=== PATIENT | female | born 1965 | race Caucasian/White ===

== ENCOUNTER 2017-01-01 10:12 | Emergency (ER) | payer OTHER ==
[2017-01-01 10:20] VITALS: BP 157/83; PULSE 77; TEMP 98; BMI 27.6
[2017-01-01] MEDS ORDERED: KETOROLAC TROMETHAMINE 60 MG/2 ML VIAL ONE (10:47)
[2017-01-01] MEDS ORDERED: KETOROLAC TROMETHAMINE 60 MG/2 ML VIAL IM ONE (10:50)
--- NOTE | 2017-01-01 10:55 | PDOC ---
History of Present Illness - General Chief Complaint: Pain Stated Complaint: HAND NUMBNESS Time Seen by Provider: 01/01/17 10:29 History Source: Patient Exam Limitations: No Limitations - History of Present Illness Initial Comments: 01/01/17 10:51 Patient is here with complaints of bilateral hand and wrist pain. 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 Has had right some radial nerve numbness for a few months and has appointment to see an orthopedist on January 10. Now states left wrist is hurting her more and more. Numbness or tingling to those fingers of left hand Occurred: reports: last week Severity: reports: mild, moderate Modifying Factors: improves with: None. worse with: cold therapy, pain medication Associated Symptoms (Fall): denies symptoms Past History - Travel Traveled outside of the country in the last 30 days: No Close contact w/someone who was outside of country & ill: No - Past Medical History Allergies/Adverse Reactions: Allergies Allergy/AdvReac Type Severity Reaction Status Date / Time No Known Allergies Allergy Verified 01/01/17 10:20 Home Medications: Ambulatory Orders No Home Medications 0 dose .ROUTE UTDICT 07/28/12 Naproxen [Naprosyn -] 500 mg PO BID #30 tablet 01/01/17 HTN: Yes - Psycho/Social/Smoking Cessation Hx Anxiety: No Suicidal Ideation: No Smoking Status: Yes Smoking History: Current every day smoker Number of Cigarettes Smoked Daily: 20 Information on smoking cessation initiated: No Hx Alcohol Use: No Review of Systems - Review of Systems Able to Perform ROS?: Yes Is the patient limited Cook Islander proficient: Yes Constitutional: Yes: See HPI. No: Symptoms Reported Musculoskeletal: Yes: Symptoms Reported, See HPI, Joint Pain, Joint Swelling Integumentary: No: Symptoms Reported Neurological: Yes: Symptoms reported, Numbness (right hand ), Paresthesia All Other Systems: Reviewed and Negative *Physical Exam - Vital Signs Last Vital Signs Temp Pulse Resp BP Pulse Ox 98 F 77 18 157/83 99 01/01/17 10:18 01/01/17 10:18 01/01/17 10:18 01/01/17 10:18 01/01/17 10:18 - Physical Exam General Appearance: Yes: Nourished, Appropriately Dressed, Apparent Distress, Mild Distress HEENT: positive: SOLIS, Normal ENT Inspection, TMs Normal, Pharynx Normal Musculoskeletal: positive: Normal Inspection. negative: Vertebral Tenderness Extremity: positive: Normal Capillary Refill. negative: Normal Range of Motion (limited range of motion secondary to tenderness with flexion and extension at wrist joint, strong grasp but this met movement reproduces tenderness through carpal tunnel and tendons of left wrist. Sensation intact to distal digits, no bone tenderness along the radius and ulna.), Swelling, Erythema Integumentary: positive: Normal Color. 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 Has appointment to see orthopedist in January for right hand issues and encouraged to discuss left wrist if continues to bother. Will use NSAIDs for pain relief and splinted. *DC/Admit/Observation/Transfer Diagnosis at time of Disposition: Strain of left wrist Qualifiers: Encounter type: initial encounter Qualified Code(s): S66.912A - Strain of unspecified muscle, fascia and tendon at wrist and hand level, left hand, initial encounter - Discharge Dispostion Disposition: HOME Condition at time of disposition: Stable Admit: No - Patient Instructions Printed Discharge Instructions: DI for Wrist Strain Additional Instructions: Rest, ice to area on and off for 15 minutes 4-6 times a day Avoid heavy lifting or exercise until pain and swelling is resolved or until further directed Keep area highly elevated to reduce swelling Use splints/Janak wrap as directed Followup with orthopedist in one to 2 days if not improving, if significantly improved may wait one week for followup with orthopedist May use ibuprofen 2-200 mg tablets every 6 hours as needed for pain - Post Discharge Activity Work/School Note: Back to Work
== END 2017-01-01 11:14 | disposition home or self-care (01) ==
LOC: JERFT 10:12
PROC: 2W3DX1Z Immobilization of Left Lower Arm using Splint (ICD-10-PCS; principal; 2017-01-01)
DX: S66.912A Strain of unspecified muscle, fascia and tendon at wrist and hand level, left hand, initial encounter (principal); X50.0XXA Overexertion from strenuous movement or load, initial encounter; X50.9XXA Other and unspecified overexertion or strenuous movements or postures, initial encounter; Y93.89 Activity, other specified; Y92.512 Supermarket, store or market as the place of occurrence of the external cause; Y99.0 Civilian activity done for income or pay
CPT/HCPCS: 99281-25

== ENCOUNTER 2017-04-07 19:12 | Emergency (ER) | payer OTHER ==
[2017-04-07 19:22] VITALS: BP 153/100; PULSE 81; TEMP 98; BMI 27.3
--- NOTE | 2017-04-07 20:14 | PDOC ---
History of Present Illness - General Chief Complaint: Sore Throat Stated Complaint: PAIN Time Seen by Provider: 04/07/17 20:10 History Source: Patient Exam Limitations: No Limitations - History of Present Illness Initial Comments: 04/07/17 20:40 Chief complaint: Itching and ear pain Patient is a 51-year-old female with a history of hypertension who was [place] got mosquito bites 2 weeks ago. She states that she thought they would go away but now she has itching all over her body. No fever. Shortness of breath and does not feel ill. Patient went to see her primary care doctor who gave her a cream she doesn't know the name but it's not helping. She states she's been taking Benadryl but it only helps a little bit. She has an appointment with a supervisor offset plate preparation on May 01. Patient is also complaining of a little bit of a sore throat and right ear pain. No difficulty eating or drinking or swallowing. GENERAL/CONSTITUTIONAL: No fever, weakness. dizziness HEAD, EYES, EARS, NOSE AND THROAT: No change in vision. +ear pain, no: discharge. +sore throat. CARDIOVASCULAR: No chest pain RESPIRATORY: No shortness of breath or cough GASTROINTESTINAL: No pain, nausea, vomiting, diarrhea or constipation GENITOURINARY: No dysuria MUSCULOSKELETAL: No neck or back pain SKIN: No rash NEUROLOGIC: No headache, vertigo, loss of consciousness, or loss of sensation. GENERAL: The patient is awake, alert, and fully oriented, in no acute distress. HEAD: Normal with no signs of trauma. EYES: Pupils equal, round and reactive to light, sclera anicteric, conjunctiva clear. ENT: pharynx: no erythema, no exudate, uvula midline. Right ear clear, left ear , canal clear, some erythema to the TM NECK: supple CHEST: clear, nontender, rr ABD: soft, nontender EXTREMITIES: Normal range of motion, no edema. NEUROLOGICAL: Normal speech, normal gait. SKIN: Warm, Dry, areas of urticaria, no signs of infection Past History - Past Medical History Allergies/Adverse Reactions: Allergies Allergy/AdvReac Type Severity Reaction Status Date / Time No Known Allergies Allergy Verified 04/07/17 19:22 Home Medications: Ambulatory Orders No Home Medications 0 dose .ROUTE UTDICT 07/28/12 Naproxen [Naprosyn -] 500 mg PO BID #30 tablet 01/01/17 Amlodipine Besylate 5 mg PO DAILY 04/07/17 Amoxicillin - [Amoxicillin 875mg Tablet -] 875 mg PO BID #20 tablet 04/07/17 Hydroxyzine HCl [Atarax -] 25 mg PO TID #21 tablet 04/07/17 Prednisone [Deltasone] 40 mg PO DAILY #10 tablet 04/07/17 HTN: Yes - Suicide/Smoking/Psychosocial Hx Smoking Status: Yes Smoking History: Current every day smoker Number of Cigarettes Smoked Daily: 20 Information on smoking cessation initiated: No Hx Alcohol Use: No *Physical Exam - Vital Signs Last Vital Signs Temp Pulse Resp BP Pulse Ox 98 F 81 18 153/100 99 04/07/17 19:18 04/07/17 19:18 04/07/17 19:18 04/07/17 19:18 04/07/17 19:18 Medical Decision Making - Medical Decision Making 04/07/17 20:42 Patient with 2 weeks of itching to the skin after traveling and having mosquito bites, has no fever, joint pain and otherwise feels well except for some ear pain which has developed in the last few days. As per report, patient gets no relief from Benadryl, saw her doctor and has an appointment with a supervisor offset plate preparation in a few weeks. We'll give her Atarax and prednisone, explained to the patient and the daughter that she needs to get further evaluation to make sure this is just a skin condition that they need to check her liver and kidneys and get a full evaluation by the supervisor offset plate preparation. Patient will also be placed on prednisone. Will prescribe amoxicillin for the ear *DC/Admit/Observation/Transfer Diagnosis at time of Disposition: Generalized pruritus - Discharge Dispostion Admit: No - Prescriptions Prescriptions: Amoxicillin - [Amoxicillin 875mg Tablet -] 875 mg PO BID #20 tablet Hydroxyzine HCl [Atarax -] 25 mg PO TID #21 tablet Prednisone [Deltasone] 40 mg PO DAILY #10 tablet - Referrals Referrals: Jordan Overton MD [Primary Care Provider] - - Patient Instructions Printed Discharge Instructions: DI for General Allergic Reactions Additional Instructions: Take the amoxicillin one tablet twice a day for 10 days for the ER For the itching you can take the Atarax 25 mg 3 times daily, this may make you sleepy. Take the prednisone 40 mg once daily for the next 5 days to see if that helps get rid of the reaction Return to the ER if shortness of breath or feeling sicker or fever Twice follow-up with supervisor offset plate preparation as instructed by your doctor
== END 2017-04-07 20:46 | disposition home or self-care (01) ==
LOC: JERFT 19:12
DX: L29.8 Other pruritus (principal)
CPT/HCPCS: 99281-25

== ENCOUNTER 2017-07-20 12:49 | Emergency (ER) | payer OTHER ==
[2017-07-20 13:00] VITALS: TEMP 98.5; BMI 27.4
--- NOTE | 2017-07-20 14:07 | PDOC ---
History of Present Illness - General Chief Complaint: Chest Pain Stated Complaint: CHEST PAIN - History of Present Illness Initial Comments: Ms Hyde is a 51yo F longtime smoker who presents with gradually progressive productive cough and chest pain. The cough preceded the chest pain, started 3 days ago, and was associated with clear/sometimes blood streaked sputum, fevers , and chills. Her daughter was recently diagnosed with bronchitis. Patient is a non-asthmatic. She denies wheezing or stridor. The chest pain started gradually along with cough. It is dull, centrally located, and pleuritic, and non- exertional. SHe denies palpitations or irregualr HR. She never had this cough and chest pain before. She has a history of HTN but is complaint with her BP meds. SH - SMoking 3 cigs/day for +30 years Past History - Past Medical History Allergies/Adverse Reactions: Allergies Allergy/AdvReac Type Severity Reaction Status Date / Time No Known Allergies Allergy Verified 07/20/17 13:01 Home Medications: Ambulatory Orders No Home Medications 0 dose .ROUTE UTDICT 07/28/12 Naproxen [Naprosyn -] 500 mg PO BID #30 tablet 01/01/17 Amlodipine Besylate 5 mg PO DAILY 04/07/17 Amoxicillin - [Amoxicillin 875mg Tablet -] 875 mg PO BID #20 tablet 04/07/17 Prednisone [Deltasone] 40 mg PO DAILY #10 tablet 04/07/17 hydrOXYzine HCL [Atarax -] 25 mg PO TID #21 tablet 04/07/17 COPD: No HTN: Yes - Suicide/Smoking/Psychosocial Hx Smoking Status: Yes Smoking History: Current every day smoker Number of Cigarettes Smoked Daily: 3 Information on smoking cessation initiated: No Hx Alcohol Use: No Drug/Substance Use Hx: No Review of Systems - Review of Systems Able to Perform ROS?: Yes Constitutional: Yes: Chills, Fever. No: Diaphoresis HEENTM: No: Eye Pain, Blurred Vision, Tearing Respiratory: Yes: Cough, Shortness of Breath. No: Orthopnea, Stridor, Wheezing Cardiac (ROS): Yes: Chest Pain. No: Edema, Irregular Heart Rate, Lightheadedness : No: Burning, Dysuria, Discharge Musculoskeletal: No: Back Pain, Gout, Joint Pain Integumentary: No: Bruising, Change in Color, Change in Hair/Nails Neurological: No: Headache, Numbness, Paresthesia Psychiatric: No: Anxiety, Depression, Frequent Crying Endocrine: No: Excessive Sweating, Flushing Hematologic/Lymphatic: No: Anemia, Blood Clots, Easy Bleeding *Physical Exam - Vital Signs Last Vital Signs Temp Pulse Resp BP Pulse Ox 98.5 F 92 H 16 152/90 98 07/20/17 12:55 07/20/17 12:55 07/20/17 12:55 07/20/17 12:55 07/20/17 12:55 - Physical Exam Comments: GEN: AAOx3, NAD but actively coughing, conversational HEENT: PERRLA, EOMi CV: S1, S2, RRR, no reproducible tenderness LUNG: CTABL ABD: Soft, NT, ND, normoactive BS MSK: No edema, no erythema NEURO: CN 2-12 intact ED Treatment Course - LABORATORY CBC & Chemistry Diagram: 07/20/17 14:10 07/20/17 14:10 - RADIOLOGY Radiology Studies Ordered: Category Date Time Status CHEST PA & LAT [RAD] Stat Radiology 07/20/17 13:59 Ordered Medical Decision Making - Medical Decision Making 51yo F with an extensive smoking history who presented with productive coughing and pleuritic chest pain along with fevers and chills. I suspect this is acute bronchitis or pneumonia. -- CBC, CMP -- UA, Urine -- CXR -- Influenza Swab 07/20/17 16:07 Flu B is positive. DC home with discharge instructions. Because symptoms started 3-4 days ago, out of Tamiflu window. CXR normal. Labs normal. *DC/Admit/Observation/Transfer Diagnosis at time of Disposition: Influenza B - Discharge Dispostion Disposition: HOME Condition at time of disposition: Good Admit: No - Referrals Referrals: Jordan Overton MD [Non Staff, Medical] - - Patient Instructions Printed Discharge Instructions: DI for Influenza -- Adult - Post Discharge Activity Forms/Work/School Notes: Back to Work
[2017-07-20 14:56] LABS: HEMOGLOBIN 12.6 GM/dL (10.7-15.3); MEAN CELL VOLUME 90.3 fl (80-96); MEAN PLT VOLUME 9.6 fl (7.5-11.1)
[2017-07-20 14:59] LABS: BASO % 0.3 % (0-2.0); EOS % 1.1 % (0-4.5); HEMATOCRIT 38.2 % (32.4-45.2); LYMPH % 27.8 % (8-40); MCH 29.8 pg (25.7-33.7); MONO % 10.3 % (3.8-10.2); NEUT % 60.5 % (42.8-82.8); PLATELET COUNT 200 K/MM3 (134-434); RBC 4.23 M/mm3 (3.60-5.2); RDW 14.8 % (11.6-15.6); WHITE BLOOD COUNT 5.5 K/mm3 (4.0-10.0)
[2017-07-20 15:31] LABS: ALBUMIN 3.6 g/dl (3.4-5.0); ANION GAP 8 (8-16); BLOOD UREA NITROGEN 11 mg/dL (7-18); CALCIUM 7.7 mg/dL (8.5-10.1); CHLORIDE 113 mmol/L (98-107); CO2 24 mmol/L (21-32); GLUCOSE,RANDOM 91 mg/dL (74-106); SODIUM 145 mmol/L (136-145)
--- NOTE | 2017-07-20 15:34 | EKG ---
Test Reason : Blood Pressure : / mmHG Vent. Rate : 086 BPM Atrial Rate : 086 BPM P-R Int : 142 ms QRS Dur : 084 ms QT Int : 384 ms P-R-T Axes : 057 -07 047 degrees QTc Int : 459 ms NORMAL SINUS RHYTHM POSSIBLE LEFT ATRIAL ENLARGEMENT BORDERLINE ECG WHEN COMPARED WITH ECG OF 12-AUG-2013 11:22, NONSPECIFIC T WAVE ABNORMALITY NOW EVIDENT IN ANTERIOR LEADS Confirmed by BETTE CANADA, LOPEZ ([id number]) on 07/20/2017 3:34:41 PM Referred By: Confirmed By:LOPEZ AMOS MD
[2017-07-20 15:35] LABS: ALK PHOS 85 U/L (45-117); BILIRUBIN,TOTAL 0.3 mg/dL (0.2-1.0); CREATININE 0.5 mg/dL (0.55-1.02); SGPT/ALT 21 U/L (12-78); TOT PROT 6.4 g/dl (6.4-8.2)
[2017-07-20 15:37] LABS: SGOT/AST 24 U/L (15-37)
--- NOTE | 2017-07-20 16:01 | PDOC ---
Attending Attestation - Resident Resident Name: Radha Chua - ED Attending Attestation I have performed the following: I have examined & evaluated the patient, The case was reviewed & discussed with the resident, I agree w/resident's findings & plan, Exceptions are as noted - HPI HPI: 07/20/17 16:19 The patient is a 51 year old female with a significant PMH of hypertension and longtime smoker who presents to the emergency department with productive cough a /w chest pain that began approximately 3 days ago. The patient states her cough had a gradual onset, productive of a clear and ocassionally blood streaked sputum. The patient described her chest pain as dull, pleuritic, and located in the mid-sternum. Pt states she only has CP when she coughs The patient also reports associated subjective chills and fevers. The patient notes her daughter was diagnosed with bronchitis recently. Pt also reports gradual onset frontal headache since last night. The patient denies palpitations, shortness of breath, weakness/numbness and dizziness. Denies nausea, vomit, diarrhea and constipation. Denies dysuria, frequency, urgency and hematuria. Allergies: NKA Past surgical history: None reported. Social history: No reported drug or alcohol use. - Physicial Exam PE: 07/20/17 16:20 GENERAL: Awake, alert, and fully oriented, in no acute distress. BP 144/68 HEAD: No signs of trauma EYES: PERRLA, EOMI, sclera anicteric, conjunctiva clear ENT: Auricles normal inspection, hearing grossly normal, nares patent, oropharynx clear without exudates. Moist mucosa NECK: Normal ROM, supple, no lymphadenopathy, JVD, or masses LUNGS: Breath sounds equal, clear to auscultation bilaterally. No wheezes, and no crackles HEART: Regular rate and rhythm, normal S1 and S2, no murmurs, rubs or gallops ABDOMEN: Soft, nontender, normoactive bowel sounds. No guarding, no rebound. No masses EXTREMITIES: Normal range of motion, no edema. No clubbing or cyanosis. No cords, erythema, or tenderness BACK: No midline spinal tenderness in cervical/thoracic/lumbar region NEUROLOGICAL: Normal speech, cranial nerves intact, negative pronator drift, 5/ 5 strength in all 4 extremities, normal sensation to light touch in all 4 extremities, normal cerebellar exam, normal gait, normal reflexes and tone SKIN: Warm, Dry, normal turgor, no rashes or lesions noted. - Medical Decision Making 07/20/17 16:20 51-year-old female, history of smoking presents to emergency Department with flu like symptoms. Vitals are unremarkable. Exam is unremarkable. Patient has tested flu positive. She is out of the window for treatment. Labs and chest x- ray are unremarkable. Patient advised to stay hydrated and follow up with her primary doctor in 1-2 days. I discussed the physical exam findings, ancillary test results and final diagnoses with the patient. I answered all of the patient's questions. The patient was satisfied with the care received and felt comfortable with the discharge plan and treatment plan. The patient will call their primary care physician within 24 hours to arrange follow-up and will return to the Emergency Department with any new, persistent or worsening symptoms.
[2017-07-20 16:56] VITALS: BP 132/75; PULSE 80
== END 2017-07-20 16:56 | disposition home or self-care (01) ==
LOC: JER 12:49
DX: J10.1 Influenza due to other identified influenza virus with other respiratory manifestations (principal); I10 Essential (primary) hypertension; F17.210 Nicotine dependence, cigarettes, uncomplicated; J40 Bronchitis, not specified as acute or chronic
CPT/HCPCS: 36415; 71046-TC-FY; 80053; 85025; 87804; 93005; 93010; 99281-25

== ENCOUNTER 2017-07-28 14:04 | Emergency (ER) | payer OTHER ==
[2017-07-28 14:17] VITALS: BP 145/91; PULSE 82; TEMP 98.2; BMI 27.4
--- NOTE | 2017-07-28 14:17 | PDOC ---
Rapid Medical Evaluation Time Seen by Provider: 07/28/17 14:14 Medical Evaluation: Allergies Allergy/AdvReac Type Severity Reaction Status Date / Time No Known Allergies Allergy Verified 07/20/17 13:01 I have performed a brief in-person evaluation of this patient. The patient presents with a chief complaint of: dysuria since yesterday, increased urinary frequency Pertinent physical exam findings: none I have ordered the following: UA/culture The patient will proceed to the ED for further evaluation.
[2017-07-28 15:13] LABS: URINE APPEARANCE SLCLOUDY; URINE BILIRUBIN NEGATIVE (NEGATIVE); URINE BLOOD 3+ (NEGATIVE); URINE COLOR YELLOW; URINE GLUCOSE (UA) NEGATIVE (NEGATIVE); URINE KETONE NEGATIVE (NEGATIVE); URINE LEUK ESTERASE TRACE (NEGATIVE); URINE NITRITE NEGATIVE (NEGATIVE); URINE PROTEIN NEGATIVE (NEGATIVE); URINE UROBILINOGEN 4.0 E.U/dl mg/dL (0.2-1.0)
--- NOTE | 2017-07-28 15:16 | PDOC ---
History of Present Illness - General Chief Complaint: Urinary Problem Stated Complaint: R/O UTI Time Seen by Provider: 07/28/17 14:14 History Source: Patient Exam Limitations: No Limitations - History of Present Illness Travel History: No Initial Comments: 07/28/17 15:16 51-year-old female presents to the ED with complaints of urinary burning since yesterday. Patient states has had UTIs before that responded well with antibiotics by mouth. Patient states similar symptoms without fever, chills, nausea, abdominal pain, back pain, vaginal discharge, or hematuria Timing/Duration: reports: intermittent Quality: reports: mild, burning Abdominal Pain Onset Location: reports: other Pain Radiation: reports: no radiation Aggravating Factors: improves with: Voiding Alleviating Factors: improves with: None Past History - Past Medical History Allergies/Adverse Reactions: Allergies Allergy/AdvReac Type Severity Reaction Status Date / Time No Known Allergies Allergy Verified 07/28/17 14:14 Home Medications: Ambulatory Orders No Home Medications 0 dose .ROUTE UTDICT 07/28/12 Amlodipine Besylate 5 mg PO DAILY 04/07/17 COPD: No HTN: Yes - Suicide/Smoking/Psychosocial Hx Smoking Status: Yes Smoking History: Current every day smoker Have you smoked in the past 12 months: Yes Number of Cigarettes Smoked Daily: 3 Information on smoking cessation initiated: No Hx Alcohol Use: No Drug/Substance Use Hx: No Patient Lives Alone: No Lives with/in: spouse/SO Review of Systems - Review of Systems Able to Perform ROS?: Yes Constitutional: No: Symptoms Reported ABD/GI: No: Symptoms Reported : Yes: Burning, Dysuria Musculoskeletal: No: Symptoms Reported Integumentary: No: Symptoms Reported Neurological: No: Weakness *Physical Exam - Vital Signs Last Vital Signs Temp Pulse Resp BP Pulse Ox 98.2 F 82 19 145/91 98 07/28/17 14:14 07/28/17 14:14 07/28/17 14:14 07/28/17 14:14 07/28/17 14:14 - Physical Exam General Appearance: Yes: Nourished, Appropriately Dressed. No: Apparent Distress Female Pelvic Exam: positive: normal external exam. negative: discharge, vaginal bleeding Gastrointestinal/Abdominal: positive: Soft. negative: Distended, Tenderness Integumentary: positive: Normal Color, Warm, Moist Neurologic: positive: Motor Strength 5/5 (ambulatory) Medical Decision Making - Medical Decision Making 07/28/17 15:19 Patient with urinary complaints upon urination since yesterday. Patient ordered for UA and urine culture 07/28/17 15:20 Laboratory Tests 07/28/17 15:00 Urine Blood 3+ H Urine Nitrite Negative Urine Urobilinogen 4.0 e.u/dl H Ur Leukocyte Esterase Trace discharge home with Macrobid. Urine culture sent *DC/Admit/Observation/Transfer Diagnosis at time of Disposition: UTI (urinary tract infection) Qualifiers: Urinary tract infection type: acute cystitis Hematuria presence: with hematuria Qualified Code(s): N30.01 - Acute cystitis with hematuria - Discharge Dispostion Disposition: HOME Condition at time of disposition: Good - Referrals - Patient Instructions Printed Discharge Instructions: DI for Urinary Tract Infection (UTI) Additional Instructions: Please take macrobid for UTI. Take tylenol for pain. Drink plenty of fluids. - Post Discharge Activity
[2017-07-28 15:19] LABS: EPI CELLS RARE /HPF (FEW); URINE BACTERIA RARE /hpf (NONE SEEN); URINE HYALINE CAST 1 /lpf; URINE MUCUS RARE
== END 2017-07-28 15:35 | disposition home or self-care (01) ==
LOC: JERFT 14:04
DX: N30.01 Acute cystitis with hematuria (principal); I10 Essential (primary) hypertension; F17.210 Nicotine dependence, cigarettes, uncomplicated
CPT/HCPCS: 81003; 81015; 87086; 99281-25